=== PATIENT | female | born 1985 | race Caucasian/White ===

== ENCOUNTER → 2016-07-15 | Outpatient (CLI) | payer BC ==
[~2016-07-15] MED LIST: AMLO10TA2 PO; HYDR25TA4 PO; PREN1TAB86 PO
--- NOTE | 2016-07-15 17:25 | Diagnostic Imaging Report ---
OB ultrasound. INDICATION: Check growth and position. FINDINGS: The heart rate is 149 beats per minute. The placenta is posterior. No placenta previa. position is cephalic. Amniotic fluid index is 11.7 cm. growth parameters are all around 36 weeks and 3 days representing relatively small size of the fetus but is likely within normal limits with estimated weight of 2.9 kg. The head circumference is at the 5th percentile and femur length is at the 3rd percentile. On prior exam of 07/02/2016, the head circumference was at the 16th percentile and femur length was at the 3rd percentile. Current gestational age by first available ultrasound which is in the second trimester, associated with decreased accuracy, is 38 weeks and 2 days. IMPRESSION: Relatively small size of the fetus, near the lower limits of normal. Dictated by: Dictated on workstation # [id number]
== END ==
LOC: RAD 14:09
PROVIDERS: ATTEND Family Medicine
DX: Z36 Encounter for antenatal screening of mother (principal); Z3A.37 37 weeks gestation of pregnancy
CPT/HCPCS: 76816

== ENCOUNTER 2016-07-19 06:00 | Inpatient (IN) | payer BC, MEDICAID ==
[2016-07-19] VITALS (65 sets, daily range): BP systolic 114–204; BP diastolic 58–112
[~2016-07-19] VITALS: Ht 160 cm; Wt 144.7 kg
[2016-07-19] MEDS ORDERED: PREN1TAB86 PO (06:53)
[2016-07-19 07:18] LABS: BILIRUBIN,URINE NEGATIVE (NEGATIVE); KETONES,URINE NEGATIVE (NEGATIVE); LEUKOCYTE ESTERASE ,URINE NEGATIVE (NEGATIVE); NITRITE,URINE NEGATIVE (NEGATIVE); PH,URINE 7 (5-9); PROTEIN,URINE 3+ (NEGATIVE); UROBILINOGEN,URINE NORMAL (NORMAL)
[2016-07-19 07:27] LABS: WBC,URINE 0-2 /HPF
[2016-07-19 08:09] LABS: BASOPHILS % (AUTO) 0 % (0-10); EOSINOPHILS # (AUTO) 0.2 10^3/uL (0.0-0.3); EOSINOPHILS % (AUTO) 2 % (0-10); LYMPHOCYTES # (AUTO) 1.5 X 10^3 (1.0-4.0); LYMPHOCYTES % (AUTO) 17 % (12-44); MEAN CORPUSCULAR HEMOGLOBIN 35 PG (25-34); MEAN CORPUSCULAR HGB CONC 34 G/DL (32-36); MEAN CORPUSCULAR VOLUME 105 FL (80-99); MEAN PLATELET VOLUME 11.4 FL (7.4-10.4); MONOCYTES # (AUTO) 0.7 X 10^3 (0.0-1.0); MONOCYTES % (AUTO) 8 % (0-12); NEUTROPHILS # (AUTO) 6.4 X 10^3 (1.8-7.8); NEUTROPHILS % (AUTO) 73 % (42-75); PLATELET COUNT 145 10^3/uL (130-400); RED BLOOD COUNT 3.32 10^6/uL (4.35-5.85); RED CELL DISTRIBUTION WIDTH 15.7 % (10.0-14.5); WHITE BLOOD COUNT 8.8 10^3/uL (4.3-11.0)
[2016-07-19 08:09] LABS: PROTEIN/CREATININE RATIO 1.48
[2016-07-19 08:27] LABS: ALANINE AMINOTRANSFERASE 34 U/L (0-55); ALBUMIN 3.3 G/DL (3.2-4.5); ANION GAP 12 MMOL/L (5-14); ASPARTATE AMINO TRANSFERASE 32 U/L (5-34); BILIRUBIN,TOTAL 0.2 MG/DL (0.1-1.0); BLOOD UREA NITROGEN 13 MG/DL (7-18); BUN/CREATININE RATIO 14; CALCIUM 9.1 MG/DL (8.5-10.1); CARBON DIOXIDE 18 MMOL/L (21-32); CHLORIDE 106 MMOL/L (98-107); CREATININE SERUM 0.95 MG/DL (0.60-1.30); GFR ESTIMATED > 60; GLUCOSE 88 MG/DL (70-105); LACTATE DEHYDROGENASE 238 U/L (125-220); POTASSIUM 4.2 MMOL/L (3.6-5.0); SODIUM 136 MMOL/L (135-145); TOTAL PROTEIN 6.8 G/DL (6.4-8.2); URIC ACID 6.4 MG/DL (2.6-7.2)
[2016-07-19] MEDS ORDERED: DINOPROSTONE 10 MG (CERVIDIL) INSERT PV ONE (08:45)
[2016-07-19] MEDS ORDERED: LACTATED RINGERS 1,000 ML IV SCH (08:48)
[2016-07-19] MEDS ORDERED: MINERAL OIL CONCENTRATE 99.9% 15 ML UDC TOP PRN (09:00)
[2016-07-19] MEDS ORDERED: D5 LR IV SOLUTION 1,000 ML IV ONE (09:06)
[2016-07-19] MEDS ORDERED: CALCIUM GLUC. 10% 4.65 MEQ/10 ML VIAL IV PRN (09:15)
[2016-07-19] MEDS ORDERED: MAGNESIUM 4 GM/100 ML IVPB 100 ML IV SCH (09:15)
[2016-07-19] MEDS: D5 LR IV SOLUTION 1,000 ML IV SCH ×2 (09:15→21:48)
[2016-07-19] MEDS ORDERED: MAGNESIUM 4 GM/100 ML IVPB 100 ML IV NR (09:25)
--- NOTE | 2016-07-19 09:25 | History & Physical-OB ---
OB - Chief Complaint & HPI Date Date of Admission: Date of Admission: Jul 19, 2016 at 08:43 Chief Complaint/History OB-Reason for Admission/Chief: Induction of Labor Hx : 4 Hx Para: 2 Expected Date of Delivery: Jul 27, 2016 Gestational Age in Weeks: 38 Gestational Age in Days: 6 Indication for induction: other (pre-eclampsia) Allergies and Home Medications Allergies Coded Allergies: No Known Drug Allergies (Verified Allergy, Unknown, 02/15/08) Home Medications Vit W-Ca,Fe,FA(<1 mg) 1 Each Tablet 1 EACH PO NEEDED (Reported) OB - History Hx of Present Care: Yes (late entry into care in 3rd trimester; had IUD in w/ irreg periods and did not know she was preg) Ultrasounds: Normal mid trimester US Obstetrical Complications: Pre-eclampsia Medical Complications: None Information Maternal Gestational Diabetes: Yes Obstetrical History Hx : 4 Hx Para: 2 Hx Total # of Abortions (Spona: 1 Hx Complication: No Hx Induced Hypertens: No Hx Maternal Gestational Diabet: Yes Hx Hemorrhage: No Delivery History Hx Dystocia: No Hx Forceps Assisted Delivery: No Hx Vacuum Extraction Assisted: No Hx Placenta Abnormality: No Hx Distress: No Hx Large For Gestational Age I: No Hx Small for Gestational Age I: No Hx Section: No Hx Vaginal Delivery Post C-Sec: No Hx Blood Disorders: No Adverse Rxn to Tranfusion: No Patient Past Medical History Sleep apnea hx of Gestational DM Social History/Family History Recent Infectious Disease Expo: No Immunizations Tetanus Booster (TDap): Less than 5yrs (06/09/16) RPR/VDRL: Negative GBS Status: Negative HBsAG: Negative OB - Admission Exam Physical Exam Vitals: Vital Signs 07/19/16 07/19/16 06:15 06:50 Temp 96.6 Pulse 65 Resp 18 B/P 204/112 O2 Delivery Room Air Abdomen: Gravid Reflexes: Normal Cervical Dilatation: 1cm Effacement: 25% Station: Ballotable Membranes: Intact Accelerations: Accelerations Present Decelerations: No Decelerations Contractions on Admission: None Pond Scoring Tool (Modified) Pond Score: 6 Labs Laboratory Tests Test 07/19/16 06:10 07/19/16 08:03 Range/Units Urine Bacteria MODERATE H /HPF Urine Bilirubin NEGATIVE NEGATIVE Urine Casts NONE /LPF Urine Clarity SLIGHTLY CLOUDY Urine Color YELLOW Urine Creatinine 44 30-125 MG/DL Urine Crystals NONE /LPF Urine Culture Indicated YES Urine Glucose (UA) NEGATIVE NEGATIVE Urine Ketones NEGATIVE NEGATIVE Urine Leukocyte Esterase NEGATIVE NEGATIVE Urine Mucus NEGATIVE /LPF Urine Nitrite NEGATIVE NEGATIVE Urine Protein 65 H 6-12 MG/DL Urine Protein/Creatinine Ratio 1.48 Urine RBC 0-2 /HPF Urine RBC (Auto) 2+ H NEGATIVE Urine Specific [place] 1.010 L 1.016-1.022 Urine Squamous Epithelial Cells 5-10 /HPF Urine Urobilinogen NORMAL NORMAL MG/DL Urine WBC 0-2 /HPF Urine pH 7 5-9 Alanine Aminotransferase (ALT/SGPT) 34 0-55 U/L Albumin 3.3 3.2-4.5 G/DL Alkaline Phosphatase 117 40-136 U/L Anion Gap 12 5-14 MMOL/L Aspartate Amino Transf (AST/SGOT) 32 5-34 U/L BUN/Creatinine Ratio 14 Basophils # (Auto) 0.0 0.0-0.1 10^3/uL Basophils (%) (Auto) 0 0-10 % Blood Urea Nitrogen 13 7-18 MG/DL Calcium Level 9.1 8.5-10.1 MG/DL Carbon Dioxide Level 18 L 21-32 MMOL/L Chloride Level 106 98-107 MMOL/L Creatinine 0.95 0.60-1.30 MG/DL Eosinophils # (Auto) 0.2 0.0-0.3 10^3/uL Eosinophils (%) (Auto) 2 0-10 % Estimat Glomerular Filtration Rate > 60 Glucose Level 88 70-105 MG/DL Hematocrit 35 35-52 % Hemoglobin 11.7 11.5-16.0 G/DL Lactate Dehydrogenase 238 H 125-220 U/L Lymphocytes # (Auto) 1.5 1.0-4.0 X 10^3 Lymphocytes (%) (Auto) 17 12-44 % Mean Corpuscular Hemoglobin 35 H 25-34 PG Mean Corpuscular Hemoglobin Concent 34 32-36 G/DL Mean Corpuscular Volume 105 H 80-99 FL Mean Platelet Volume 11.4 H 7.4-10.4 FL Monocytes # (Auto) 0.7 0.0-1.0 X 10^3 Monocytes (%) (Auto) 8 0-12 % Neutrophils # (Auto) 6.4 1.8-7.8 X 10^3 Neutrophils (%) (Auto) 73 42-75 % Platelet Count 145 130-400 10^3/uL Potassium Level 4.2 3.6-5.0 MMOL/L Red Blood Count 3.32 L 4.35-5.85 10^6/uL Red Cell Distribution Width 15.7 H 10.0-14.5 % Sodium Level 136 135-145 MMOL/L Total Bilirubin 0.2 0.1-1.0 MG/DL Total Protein 6.8 6.4-8.2 G/DL Uric Acid 6.4 2.6-7.2 MG/DL White Blood Count 8.8 4.3-11.0 10^3/uL OB - Assessment/Plan/Diagnosis Assessment Assessment: induction of labor (for pre-eclampsia) Plan Plan: Induction Induction Method: other (cervidil, pitocin) Other Plan Start Mag Sulfate for seizure prophylaxis Treat BP to <160/105 w/ Labetalol and/or hydralazine JUANJOSE FRANCISCO DO Jul 19, 2016 09:25
[2016-07-19] MEDS: LABETALOL HCL 20 MG/4 ML VIAL IV PRN (09:38)
[2016-07-19] MEDS ORDERED: hydrALAZINE (APESOLINE) 20 MG/ML VIAL IV SCH (10:00)
[2016-07-19] MEDS: MAGNESIUM SULFATE DRIP 500 ML IV SCH ×2 (10:26→20:16)
[2016-07-19] MEDS ORDERED: FLU TRIvalent (5 YOA+) 2016-17 (AFLURIA) 0.5 ML IM ONE (13:00)
[2016-07-19] MEDS: ACETAMINOPHEN 500 MG TAB (TYLENOL) PO PRN (17:21)
[2016-07-19] MEDS ORDERED: OXYTOCIN/NORMAL SALINE 500 ML IV SCH (18:16)
[2016-07-19] MEDS ORDERED: SUFENTA 1 MCG/ML BUPIVA 0.1% 100 ML ONE (21:27)
[2016-07-19] MEDS: CATHETER FLUSH 10 ML SYR IV SCH (22:00)
[2016-07-19] MEDS ORDERED: BUPIVACAINE 0.25% 30 ML (SENSORCAINE) VIAL ONE (22:04)
[2016-07-19] MEDS ORDERED: ONDANSETRON 4 MG/2 ML (SDV) Z0FRAN IV PRN (22:45)
[2016-07-19] MEDS ORDERED: NALOXONE 0.4 MG/ML 1 ML (NARCAN) VIAL IV PRN (22:45)
[2016-07-19] MEDS ORDERED: EPIDURAL (SUFENTANIL 1 MCG/ML BUPIVACAINE 0.1%) 100 ML EPI SCH (22:45)
[2016-07-20] VITALS (47 sets, daily range): BP systolic 93–193; BP diastolic 49–109
[2016-07-20] MEDS: CATHETER FLUSH 10 ML SYR IV SCH ×3 (06:00→22:22)
--- NOTE | 2016-07-20 06:06 | OB Labor & Delivery Record ---
Vag Delivery Note Vag Delivery Note Date of Delivery: 07/20/16 Preoperative Diagnosis: Gisselle Guthrie is a (31 /Para 4 / 2,Gestational Age (wks)38.6 wga with pre eclampsia and morbid obesity. Postoperative Diagnosis: Same Delivery Physician: NIKI PRADO Station Cashier: None Anesthesia: Epidural Delivery Type: Findings: Viable Male infant, apgars 7/9, weight 2655 grams Lacerations: none Intact placenta with 3 vessel cord. nuchal cord x 2, No body cord or shoulder dystocia Pitocin started after delivery of anterior shoulder Estimated Blood Loss: 150 ml Complications: Preelcampsia Condition: Stable Description of Procedure: The patient is a 31 yo who presented with elevated blood pressures and proteinuria. She was admitted and informed consent was obtained. Her labor course was remarkable for Preeclampsia. Patient on Magnesium since admission. Cervidil was placed this AM and remained in placed for 8 hrs. Pitocin was started 1 hr after Cervidil was removed. Patient then progressed to completion. She was then set up for delivery. The 's head was delivered atraumatically in the PRISCA position. The shoulders and remainder of the 's body were then delivered without difficulty. Upon delivery, the head was held below the level of the perineum and the mouth and nares were bulb suctioned. The cord was doubly clamped and cut and the was handed off to the pediatric staff. An intact placenta with 3-vessel cord delivered spontaneously and there was found to be minimal bleeding.~ Vigorous fundal massage was performed and the fundus was found to be firm. IV oxytocin was given. Examination of the vagina and perineum revealed no lacerations that required repaire. Sponge, instrument and needle counts were correct. Mom and baby were both in stable condition in the labor suite. Vitals - Labs Vital Signs - I&O Vital Signs Date Time Temp Pulse Resp B/P Pulse Ox O2 Delivery O2 Flow Rate FiO2 07/20/16 05:00 96.8 71 16 152/89 Room Air 07/20/16 04:45 57 16 170/92 Non Rebreather 10.00 07/20/16 04:30 59 16 186/99 Non Rebreather 10.00 07/20/16 04:15 57 16 165/98 Non Rebreather 10.00 07/20/16 04:00 58 16 167/108 Non Rebreather 10.00 07/20/16 03:45 56 16 161/102 Non Rebreather 10.00 07/20/16 03:30 61 16 156/82 Room Air 07/20/16 03:15 97.5 57 14 193/95 Room Air 07/20/16 03:00 56 14 184/95 Room Air 07/20/16 02:45 96.9 59 14 168/97 Room Air 07/20/16 02:30 57 14 138/85 Room Air 07/20/16 02:15 60 14 142/84 Room Air 07/20/16 02:00 65 14 144/92 Room Air 07/20/16 01:45 66 14 161/91 Room Air 07/20/16 01:30 68 14 167/96 97 Room Air 07/20/16 01:15 61 14 152/85 99 Room Air 07/20/16 01:00 57 14 143/84 99 Non Rebreather 10.00 07/20/16 00:45 57 14 137/81 99 Non Rebreather 10.00 07/20/16 00:30 96.3 62 14 158/80 98 Non Rebreather 10.00 07/20/16 00:15 62 14 146/73 99 Non Rebreather 10.00 07/20/16 00:00 68 14 141/68 93 Non Rebreather 10.00 07/19/16 23:45 67 14 149/75 95 Room Air 07/19/16 23:30 63 14 149/79 100 Non Rebreather 10.00 07/19/16 23:10 61 14 145/80 100 Non Rebreather 10.00 07/19/16 23:05 66 14 144/84 100 Non Rebreather 10.00 07/19/16 23:00 60 14 155/83 100 Non Rebreather 10.00 07/19/16 22:55 64 14 139/81 100 Non Rebreather 10.00 07/19/16 22:50 96.8 66 14 143/87 95 Room Air 07/19/16 22:42 67 14 146/82 92 Room Air 07/19/16 22:37 66 16 148/83 97 Room Air 07/19/16 22:34 66 16 148/80 97 Room Air 07/19/16 22:31 65 16 149/79 97 Room Air 07/19/16 22:28 70 16 165/87 97 Room Air 07/19/16 22:27 70 16 153/83 95 Room Air 07/19/16 22:23 66 16 159/86 99 Room Air 07/19/16 22:22 68 16 178/96 100 Room Air 07/19/16 22:19 62 16 180/92 98 Room Air 07/19/16 22:10 69 16 168/105 100 Room Air 07/19/16 22:00 68 18 188/97 98 Room Air 07/19/16 21:45 66 18 156/88 Room Air 07/19/16 21:30 62 18 146/82 Room Air 07/19/16 21:15 63 18 189/102 Room Air 07/19/16 21:00 96.6 65 18 153/82 Room Air 07/19/16 20:45 66 18 142/93 Room Air 07/19/16 20:30 70 18 138/93 Room Air 07/19/16 20:15 68 18 170/98 Room Air 07/19/16 20:00 68 18 152/96 Room Air 07/19/16 19:45 68 18 140/79 Room Air 07/19/16 19:30 96.6 65 18 133/74 Room Air 07/19/16 19:15 68 18 133/64 Room Air 07/19/16 19:00 66 18 145/65 Room Air 07/19/16 18:45 70 18 137/80 Room Air 07/19/16 18:30 63 18 135/61 Room Air 07/19/16 18:15 65 18 137/67 Room Air 07/19/16 18:00 78 18 154/74 Room Air 07/19/16 17:45 68 18 154/74 Room Air 07/19/16 17:30 70 18 143/66 Room Air 07/19/16 17:15 67 18 132/64 Room Air 07/19/16 17:00 67 18 143/70 Room Air 07/19/16 16:45 70 18 144/65 Room Air 07/19/16 16:30 69 18 139/64 Room Air 07/19/16 16:15 68 18 144/69 Room Air 07/19/16 16:00 68 18 147/69 Room Air 07/19/16 15:45 67 18 147/67 Room Air 07/19/16 15:30 68 18 151/63 Room Air 07/19/16 15:15 64 18 139/71 Room Air 07/19/16 15:00 68 18 148/75 Room Air 07/19/16 14:45 64 18 152/74 Room Air 07/19/16 14:35 67 18 157/71 Room Air 07/19/16 14:30 65 18 163/82 Room Air 07/19/16 14:15 62 18 145/80 Room Air 07/19/16 14:02 67 18 166/86 Room Air 07/19/16 14:00 97.1 67 18 179/90 Room Air 07/19/16 13:30 18 Room Air 07/19/16 13:00 61 18 130/60 Room Air 07/19/16 12:30 18 Room Air 07/19/16 12:00 18 Room Air 07/19/16 11:50 18 127/60 Room Air 07/19/16 11:30 Room Air 07/19/16 11:18 97.7 61 18 141/65 Room Air 07/19/16 11:00 56 18 114/59 Room Air 07/19/16 10:48 58 18 117/71 Room Air 07/19/16 10:30 64 18 123/58 96 Room Air 07/19/16 10:18 63 18 130/66 96 Room Air 07/19/16 10:00 60 18 146/68 95 Room Air 07/19/16 09:45 64 18 189/94 94 Room Air 07/19/16 08:30 197/100 07/19/16 07:15 97.4 56 18 202/98 Room Air 07/19/16 06:50 65 18 204/112 Room Air 07/19/16 06:15 96.6 63 18 175/86 Room Air I & O 07/20/16 07:00 Intake Total 1600 ml Output Total 2675 ml Balance -1075 ml Labs Laboratory Tests 07/19/16 06:10: Urine Bacteria MODERATEH, Urine Bilirubin NEGATIVE, Urine Casts NONE, Urine Clarity SLIGHTLY CLOUDY, Urine Color YELLOW, Urine Creatinine 44, Urine Crystals NONE, Urine Culture Indicated YES, Urine Glucose (UA) NEGATIVE, Urine Ketones NEGATIVE, Urine Leukocyte Esterase NEGATIVE, Urine Mucus NEGATIVE, Urine Nitrite NEGATIVE, Urine Protein 65H, Urine Protein/Creatinine Ratio 1.48, Urine RBC 0-2, Urine RBC (Auto) 2+H, Urine Specific [place] 1.010L, Urine Squamous Epithelial Cells 5-10, Urine Urobilinogen NORMAL, Urine WBC 0-2, Urine pH 7 07/19/16 08:03: Alanine Aminotransferase (ALT/SGPT) 34, Albumin 3.3, Alkaline Phosphatase 117, Anion Gap 12, Aspartate Amino Transf (AST/SGOT) 32, BUN/Creatinine Ratio 14, Basophils # (Auto) 0.0, Basophils (%) (Auto) 0, Blood Urea Nitrogen 13, Calcium Level 9.1, Carbon Dioxide Level 18L, Chloride Level 106, Creatinine 0.95, Eosinophils # (Auto) 0.2, Eosinophils (%) (Auto) 2, Estimat Glomerular Filtration Rate > 60, Glucose Level 88, Hematocrit 35, Hemoglobin 11.7, Lactate Dehydrogenase 238H, Lymphocytes # (Auto) 1.5, Lymphocytes (%) (Auto) 17, Mean Corpuscular Hemoglobin 35H, Mean Corpuscular Hemoglobin Concent 34, Mean Corpuscular Volume 105H, Mean Platelet Volume 11.4H, Monocytes # (Auto) 0.7, Monocytes (%) (Auto) 8, Neutrophils # (Auto) 6.4, Neutrophils (%) (Auto) 73, Platelet Count 145, Potassium Level 4.2, Red Blood Count 3.32L, Red Cell Distribution Width 15.7H, Sodium Level 136, Total Bilirubin 0.2, Total Protein 6.8, Uric Acid 6.4, White Blood Count 8.8 07/19/16 08:09: Magnesium Level 1.9 07/19/16 14:00: Glucometer 93 07/19/16 20:23: Glucometer 110 NIKI PRADO MD Jul 20, 2016 06:06
[2016-07-20] MEDS ORDERED: WITCH HAZEL(TUCKS) 40 EA JAR TOP PRN (06:15)
[2016-07-20] MEDS ORDERED: MEASLES,MUMPS,RUBELLA 1 EA INJ SQ ONE (06:15)
[2016-07-20] MEDS: MAGNESIUM SULFATE DRIP 500 ML IV SCH ×2 (06:15→16:05)
[2016-07-20] MEDS ORDERED: TETANUS,DIPTH,PERTUSS P/F (BOOSTRIX) 0.5 ML VIAL IM ONE (06:15)
[2016-07-20] MEDS ORDERED: BENZOCAINE/MENTHOL (DERMOPLAST) 56 ML CAN TP PRN (06:15)
[2016-07-20] MEDS: LABETALOL HCL 20 MG/4 ML VIAL IV PRN (07:57)
[2016-07-20] MEDS: IBUPROFEN 600 MG (MOTRIN) TAB PO SCH ×3 (07:58→20:06)
[2016-07-20] MEDS ORDERED: OXYTOCIN/NORMAL SALINE 500 ML IV NR (10:00)
--- NOTE | 2016-07-20 11:53 | Anesthesia-Regional Post-Op ---
Regional Patient Condition Mental Status: Alert, Oriented x3 Circulation: Same as Pre-Op Headache: Absent Sensation: Full Recovery Motor Block: Absent Post Op Complications Complications None Follow Up Care/Instructions Patient Instructions None needed. Anesthesia/Patient Condition Patient is doing well, no complaints, stable vital signs, no apparent adverse anesthesia problems. No complications reported per nursing. OSIEL WILSON CRNA Jul 20, 2016 11:53
[2016-07-20] MEDS ORDERED: CATHETER FLUSH 10 ML SYR IV SCH (14:00)
[2016-07-20] MEDS: D5 LR IV SOLUTION 1,000 ML IV SCH ×2 (16:04→22:22)
[2016-07-21] VITALS (13 sets, daily range): BP systolic 103–150; BP diastolic 60–91
[2016-07-21] MEDS: MAGNESIUM SULFATE DRIP 500 ML IV SCH (02:13)
[2016-07-21 05:16] LABS: BASOPHILS % (AUTO) 0 % (0-10); EOSINOPHILS # (AUTO) 0.1 10^3/uL (0.0-0.3); EOSINOPHILS % (AUTO) 1 % (0-10); LYMPHOCYTES # (AUTO) 1.3 X 10^3 (1.0-4.0); LYMPHOCYTES % (AUTO) 16 % (12-44); MEAN CORPUSCULAR HEMOGLOBIN 35 PG (25-34); MEAN CORPUSCULAR HGB CONC 33 G/DL (32-36); MEAN CORPUSCULAR VOLUME 105 FL (80-99); MEAN PLATELET VOLUME 10.7 FL (7.4-10.4); MONOCYTES # (AUTO) 0.4 X 10^3 (0.0-1.0); MONOCYTES % (AUTO) 5 % (0-12); NEUTROPHILS # (AUTO) 6.2 X 10^3 (1.8-7.8); NEUTROPHILS % (AUTO) 78 % (42-75); PLATELET COUNT 142 10^3/uL (130-400); RED BLOOD COUNT 2.86 10^6/uL (4.35-5.85)
[2016-07-21] MEDS: IBUPROFEN 600 MG (MOTRIN) TAB PO SCH ×4 (06:15→17:49)
--- NOTE | 2016-07-21 08:53 | Progress Note (SOAP) ---
Subjective Subjective/Events-last exam On mag for 24h; good UOP. BP improved, received 1 dose of Labetalol since delivery. Objective Exam Last Set of Vital Signs Vital Signs Date Time Temp Pulse Resp B/P Pulse Ox O2 Delivery O2 Flow Rate FiO2 07/21/16 07:00 97.6 69 18 125/82 Room Air 07/21/16 04:00 93 07/20/16 04:45 10.00 Capillary Refill : I&O Intake and Output 07/21/16 00:00 Intake Total 5250 ml Output Total 2745 ml Balance 2505 ml Intake Oral 2800 ml IV Total 2450 ml Output Urine Total 2595 ml Emesis 150 ml General: Alert, Cooperative, Other (grogy) Psych/Mental Status: Mood NL Results/Procedures Lab Laboratory Tests 07/21/16 05:00: Basophils # (Auto) 0.0, Basophils (%) (Auto) 0, Eosinophils # (Auto) 0.1, Eosinophils (%) (Auto) 1, Hematocrit 30L, Hemoglobin 9.9L, Lymphocytes # (Auto) 1.3, Lymphocytes (%) (Auto) 16, Mean Corpuscular Hemoglobin 35H, Mean Corpuscular Hemoglobin Concent 33, Mean Corpuscular Volume 105H, Mean Platelet Volume 10.7H, Monocytes # (Auto) 0.4, Monocytes (%) (Auto) 5, Neutrophils # ( Auto) 6.2, Neutrophils (%) (Auto) 78H, Platelet Count 142, Red Blood Count 2.86L , Red Cell Distribution Width 16.0H, White Blood Count 8.0 Microbiology 07/19/16 Urine Culture - Preliminary, Resulted Assessment/Plan Assessment/Plan Plan 1. PPD #1 s/p - IOL at 39wk for pre-eclampsia - Received mag sulfate x 24h w/ good UOP - DC, DC IVF and douglas - monitor BP, tx w/ po meds if necessary - encourage ambulation Diagnosis/Problems: Clinical Quality Measures DVT/VTE Risk/Contraindication: Risk Factor Score Per Nursin RFS Level Per Nursing on Admit: 3=High JUANJOSE FRANCISCO DO Jul 21, 2016 08:53
[2016-07-21] MEDS ORDERED: TETANUS,DIPTH,PERTUSS P/F (BOOSTRIX) 0.5 ML VIAL IM ONE (10:26)
[2016-07-22] VITALS (7 sets, daily range): BP systolic 130–167; BP diastolic 79–96
[2016-07-22 06:39] LABS: MEAN PLATELET VOLUME 11.1 FL (7.4-10.4); RED BLOOD COUNT 2.71 10^6/uL (4.35-5.85); RED CELL DISTRIBUTION WIDTH 16.3 % (10.0-14.5); WHITE BLOOD COUNT 6.9 10^3/uL (4.3-11.0)
[2016-07-22] MEDS: IBUPROFEN 600 MG (MOTRIN) TAB PO SCH ×5 (06:55→20:45)
[2016-07-22 07:03] LABS: ALANINE AMINOTRANSFERASE 26 U/L (0-55); ALBUMIN 2.9 G/DL (3.2-4.5); ANION GAP 8 MMOL/L (5-14); ASPARTATE AMINO TRANSFERASE 29 U/L (5-34); BILIRUBIN,TOTAL 0.2 MG/DL (0.1-1.0); BLOOD UREA NITROGEN 11 MG/DL (7-18); BUN/CREATININE RATIO 12; CALCIUM 7.1 MG/DL (8.5-10.1); CARBON DIOXIDE 21 MMOL/L (21-32); CHLORIDE 109 MMOL/L (98-107); CREATININE SERUM 0.93 MG/DL (0.60-1.30); GFR ESTIMATED > 60; GLUCOSE 117 MG/DL (70-105); SODIUM 138 MMOL/L (135-145)
--- NOTE | 2016-07-22 09:41 | Progress Note (SOAP) ---
Subjective Subjective/Events-last exam Pt feeling much better. Good UOP. Objective Exam Last Set of Vital Signs Vital Signs Date Time Temp Pulse Resp B/P Pulse Ox O2 Delivery O2 Flow Rate FiO2 07/22/16 08:45 97.6 62 18 167/79 96 07/22/16 04:30 NIV/CPAP 07/20/16 04:45 10.00 Capillary Refill : I&O Intake and Output 07/22/16 00:00 Intake Total 3745 ml Output Total 4375 ml Balance -630 ml Intake Oral 2900 ml IV Total 845 ml Output Urine Total 4375 ml General: Alert, Oriented X3, Cooperative Psych/Mental Status: Mood NL Results/Procedures Lab Laboratory Tests 07/22/16 05:43: Alanine Aminotransferase (ALT/SGPT) 26, Albumin 2.9L, Alkaline Phosphatase 104, Anion Gap 8, Aspartate Amino Transf (AST/SGOT) 29, BUN/Creatinine Ratio 12, Blood Urea Nitrogen 11, Calcium Level 7.1L, Carbon Dioxide Level 21, Chloride Level 109H, Creatinine 0.93, Estimat Glomerular Filtration Rate > 60, Glucose Level 117H, Hematocrit 29L, Hemoglobin 9.4L, Mean Corpuscular Hemoglobin 35H, Mean Corpuscular Hemoglobin Concent 32, Mean Corpuscular Volume 107H, Mean Platelet Volume 11.1H, Platelet Count 158, Potassium Level 4.0, Red Blood Count 2.71L, Red Cell Distribution Width 16.3H, Sodium Level 138, Total Bilirubin 0.2 , Total Protein 6.0L, White Blood Count 6.9 Microbiology 07/19/16 Urine Culture - Final, Complete Assessment/Plan Assessment/Plan Plan 1. PPD #2 s/p - IOL at 39wk for pre-eclampsia 07/21 - Received mag sulfate x 24h w/ good UOP - DC, DC IVF and douglas - monitor BP, tx w/ po meds if necessary - encourage ambulation 07/22 - BP generally 130 systolic, had 1 recorded of 160's systolic - continue to monitor - anticipate DC to room in tomorrow as baby will require antibiotics for 7 days for pneumonia Diagnosis/Problems: Clinical Quality Measures DVT/VTE Risk/Contraindication: Risk Factor Score Per Nursin RFS Level Per Nursing on Admit: 3=High JUANJOSE FRANCISCO DO Jul 22, 2016 09:41
[2016-07-22] MEDS: CATHETER FLUSH 10 ML SYR IV SCH (13:08)
[2016-07-22] MEDS ORDERED: amLODIPine 5 MG (NORVASC) TAB PO ONE (21:15)
[2016-07-23 04:05] VITALS: BP 145/91
[2016-07-23] MEDS: IBUPROFEN 600 MG (MOTRIN) TAB PO SCH (06:53)
[2016-07-23] MEDS ORDERED: amLODIPine 5 MG (NORVASC) TAB PO SCH (09:00)
[2016-07-23] MEDS ORDERED: AMLO10TA2 PO (09:13)
[2016-07-23 12:32] LABS: BASOPHILS % (AUTO) 0 % (0-10); EOSINOPHILS # (AUTO) 0.2 10^3/uL (0.0-0.3); EOSINOPHILS % (AUTO) 3 % (0-10); LYMPHOCYTES # (AUTO) 1.6 X 10^3 (1.0-4.0); LYMPHOCYTES % (AUTO) 20 % (12-44); MEAN CORPUSCULAR HEMOGLOBIN 35 PG (25-34); MEAN CORPUSCULAR HGB CONC 32 G/DL (32-36); MEAN CORPUSCULAR VOLUME 108 FL (80-99); MEAN PLATELET VOLUME 10.5 FL (7.4-10.4); MONOCYTES # (AUTO) 0.5 X 10^3 (0.0-1.0); MONOCYTES % (AUTO) 6 % (0-12); NEUTROPHILS # (AUTO) 5.4 X 10^3 (1.8-7.8); NEUTROPHILS % (AUTO) 70 % (42-75); PLATELET COUNT 177 10^3/uL (130-400); RED BLOOD COUNT 3.01 10^6/uL (4.35-5.85); RED CELL DISTRIBUTION WIDTH 15.9 % (10.0-14.5); WHITE BLOOD COUNT 7.7 10^3/uL (4.3-11.0)
[2016-07-23 12:49] LABS: BAND NEUTROPHILS 0 %; LYMPHOCYTES % (MANUAL) 26 %; NEUTROPHILS % (MANUAL) 62 %
[2016-07-23 12:50] LABS: BASOPHILS % (MANUAL) 1 %; EOSINOPHILS % (MANUAL) 1 %
[2016-07-23 13:00] VITALS: BP 174/100
[2016-07-23 13:04] LABS: ALANINE AMINOTRANSFERASE 30 U/L (0-55); ALBUMIN 3.2 G/DL (3.2-4.5); ANION GAP 10 MMOL/L (5-14); ASPARTATE AMINO TRANSFERASE 34 U/L (5-34); BILIRUBIN,TOTAL 0.4 MG/DL (0.1-1.0); BLOOD UREA NITROGEN 8 MG/DL (7-18); BUN/CREATININE RATIO 9; CALCIUM 8.5 MG/DL (8.5-10.1); CARBON DIOXIDE 22 MMOL/L (21-32); CHLORIDE 107 MMOL/L (98-107); CREATININE SERUM 0.94 MG/DL (0.60-1.30); GFR ESTIMATED > 60; GLUCOSE 109 MG/DL (70-105); LACTATE DEHYDROGENASE 294 U/L (125-220); POTASSIUM 4.1 MMOL/L (3.6-5.0); SODIUM 139 MMOL/L (135-145); TOTAL PROTEIN 6.6 G/DL (6.4-8.2)
[2016-07-23 15:04] VITALS: BP 159/109
[2016-07-23] MEDS ORDERED: NIFEdipine ER 30 MG (PROCARDIA XL) TAB PO NR (15:30)
[2016-07-23 17:30] VITALS: BP 174/104
[2016-07-23] MEDS: HYDROCHLOROTHIAZIDE 25 MG (HCTZ) TAB PO SCH (18:00)
[2016-07-23 19:48] VITALS: BP 156/93
--- NOTE | 2016-07-23 20:03 | Progress Note (SOAP) ---
Subjective Subjective/Events-last exam Denies headache, abdominal pain, swelling, shortness of breath. Bleeding is minimal and she denies dizziness. Date seen by provider: Jul 23, 2016 Time seen by provider: 09:00 Objective Exam Last Set of Vital Signs Vital Signs Date Time Temp Pulse Resp B/P Pulse Ox O2 Delivery O2 Flow Rate FiO2 07/23/16 19:48 97.6 66 18 156/93 96 Room Air 07/20/16 04:45 10.00 Capillary Refill : General: Alert, No Acute Distress Lungs: Clear to Auscultation, Normal Air Movement Heart: Regular Rate, No Murmurs Abdomen: Normal Bowel Sounds, Other (fundus firm below umbilicus) Neuro: Normal Gait, Normal Speech Psych/Mental Status: Mental Status NL Results/Procedures Lab Laboratory Tests 07/23/16 12:25: Alanine Aminotransferase (ALT/SGPT) 30, Albumin 3.2, Alkaline Phosphatase 91, Anion Gap 10, Aspartate Amino Transf (AST/SGOT) 34, BUN/Creatinine Ratio 9, Band Neutrophils 0, Basophils # (Auto) 0.0, Basophils % (Manual) 1, Basophils (% ) (Auto) 0, Blood Morphology Comment NORMAL, Blood Urea Nitrogen 8, Calcium Level 8.5, Carbon Dioxide Level 22, Chloride Level 107, Creatinine 0.94, Eosinophils # (Auto) 0.2, Eosinophils % (Manual) 1, Eosinophils (%) (Auto) 3, Estimat Glomerular Filtration Rate > 60, Glucose Level 109H, Hematocrit 32L, Hemoglobin 10.4L, Lactate Dehydrogenase 294H, Lymphocytes # (Auto) 1.6, Lymphocytes % (Manual) 26, Lymphocytes (%) (Auto) 20, Mean Corpuscular Hemoglobin 35H, Mean Corpuscular Hemoglobin Concent 32, Mean Corpuscular Volume 108H, Mean Platelet Volume 10.5H, Monocytes # (Auto) 0.5, Monocytes % (Manual) 10, Monocytes (%) (Auto) 6, Neutrophils # (Auto) 5.4, Neutrophils % (Manual) 62 , Neutrophils (%) (Auto) 70, Nucleated Red Blood Cells 1, Platelet Count 177, Potassium Level 4.1, Red Blood Count 3.01L, Red Cell Distribution Width 15.9H, Sodium Level 139, Total Bilirubin 0.4, Total Protein 6.6, Uric Acid 6.0, White Blood Count 7.7 Microbiology 07/19/16 Urine Culture - Final, Complete Assessment/Plan Assessment/Plan Plan 1. PPD #2 s/p - IOL at 39wk for pre-eclampsia 07/21 - Received mag sulfate x 24h w/ good UOP - DC, DC IVF and douglas - monitor BP, tx w/ po meds if necessary - encourage ambulation 07/22 - BP generally 130 systolic, had 1 recorded of 160's systolic - continue to monitor - anticipate DC to room in tomorrow as baby will require antibiotics for 7 days for pneumonia 07/23 - required amlodipine last night and BP remains elevated, given a dose of nifedipine without improvement, rechecked preeclampsia labs which show only elevated LDH. Will give hydralazine now and add hydrochlorothiazide to daily regimen and monitor closely. Consider IV or IM therapy if BP persistently above 160/110. Diagnosis/Problems: Clinical Quality Measures DVT/VTE Risk/Contraindication: Risk Factor Score Per Nursin RFS Level Per Nursing on Admit: 3=High NACHO OLIVIA MD Jul 23, 2016 8:03 pm
[2016-07-24] VITALS (9 sets, daily range): BP systolic 135–181; BP diastolic 81–107
[2016-07-24] MEDS ORDERED: amLODIPine 5 MG (NORVASC) TAB PO SCH (09:00)
[2016-07-24] MEDS ORDERED: HYDR25TA4 PO (09:29)
[2016-07-24] MEDS: HYDROCHLOROTHIAZIDE 25 MG (HCTZ) TAB PO SCH (09:55)
[2016-07-24] MEDS: ACETAMINOPHEN 500 MG TAB (TYLENOL) PO PRN ×2 (09:58→15:30)
--- NOTE | 2016-08-06 14:41 | Discharge Summary ---
Diagnosis/Chief Complaint Date of Admission Jul 19, 2016 at 08:43 Date of Discharge Jul 24, 2016 at 20:20 Admission Diagnosis Admission Diagnosis 39 weeks gestation Preeclampsia Discharge Diagnosis 1. s/p - IOL at 39wk for pre-eclampsia 07/21 - Received mag sulfate x 24h w/ good UOP - DC, DC IVF and douglas - monitor BP, tx w/ po meds if necessary - encourage ambulation 07/22 - BP generally 130 systolic, had 1 recorded of 160's systolic - continue to monitor - anticipate DC to room in tomorrow as baby will require antibiotics for 7 days for pneumonia 07/23 - required amlodipine last night and BP remains elevated, given a dose of nifedipine without improvement, rechecked preeclampsia labs which show only elevated LDH. Will give hydralazine now and add hydrochlorothiazide to daily regimen and monitor closely. Consider IV or IM therapy if BP persistently above 160/110. 07/24 - blood pressure in 130s at d/c with amlodipine and hydrochlorothiazide, d/ c with follow up in a week for blood pressure Chief Complaint/HPI Chief Complaint/HPI G4 now P3 admitted for IOL at 38w6d due to preeclampsia. Discharge Summary-Simple/Stand Procedures Spontaneous vaginal delivery Discharge Physical Examination Allergies: Coded Allergies: No Known Drug Allergies (Verified Allergy, Unknown, 02/15/08) General Appearance: Alert, No Acute Distress Respiratory: Clear to Auscultation, Normal Air Movement Abdominal: Normal Bowel Sounds, Other (fundus firm below umbilicus) Extremities: No Edema Psych/Mental Status: Mental Status NL Hospital Course See final discharge diagnosis. Discharge Instructions to patient/family Please see electonic discharge instructions given to patient. Discharge Medications Reviewed and agree with Discharge Medication list on patient's Discharge Instruction sheet Clinical Quality Measures DVT/VTE Risk/Contraindication: Risk Factor Score Per Nursin RFS Level Per Nursing on Admit: 3=High Copy Copies To 1: JUANJOSE FRANCISCO BETHANY N MD Aug 06, 2016 14:41
== END 2016-07-24 20:20 | disposition home or self-care (01) | DRG 775 ==
LOC: WSo 06:00 → LDRP 06:03 → WSo 08:43 → LDRP 08:43
PROVIDERS: ADMIT Family Medicine; ATTEND Family Medicine
PROC: 3E0P7GC Introduction of Other Therapeutic Substance into Female Reproductive, Via Natural or Artificial Opening (ICD-10-PCS; 2016-07-19)
PROC: 10E0XZZ Delivery of Products of Conception, External Approach (ICD-10-PCS; principal; 2016-07-20)
DX: O14.94 Unspecified pre-eclampsia, complicating childbirth (principal); O24.429 Gestational diabetes mellitus in childbirth, unspecified control; Z3A.38 38 weeks gestation of pregnancy; Z37.0 Single live birth; O69.81X0 Labor and delivery complicated by cord around neck, without compression, not applicable or unspecified; E66.01 Morbid (severe) obesity due to excess calories; Z68.43 Body mass index [BMI] 50.0-59.9, adult; O99.214 Obesity complicating childbirth; Z23 Encounter for immunization
CPT/HCPCS: 36415; 80053; 81000; 82570; 82962; 83615; 83735; 84156; 84550; 85007; 85025; 85027; 86850; 86900; 86901; 87088; 90715; 94664; 99212

== ENCOUNTER → 2019-03-23 | Outpatient (CLI) | payer BC, MEDICAID ==
[~2019-03-23] MED LIST changes: -AMLO10TA2 PO; +AMLO10TA7 PO
--- NOTE | 2019-03-23 09:57 | Diagnostic Imaging Report ---
INDICATION: Acute versus chronic renal failure. TECHNIQUE: Multiple real-time grayscale sonographic images, color and duplex Doppler images were obtained of the urinary system. FINDINGS: Aortic velocity: 119 cm/sec. RIGHT kidney: Size: 10.6 x 5.2 x 4.8 cm The right renal parenchyma and collecting system appear unremarkable. The right renal artery is visualized in its proximal, mid and distal aspect. Maximum renal artery velocity: 105cm/sec Maximum renal artery/aortic ratio: 0.8 LEFT kidney: Size: 11.2 x 4.3 x 4.7 cm The left renal parenchyma and collecting system appear unremarkable. The left renal artery is visualized in its proximal, mid and distal aspect. Maximum renal artery velocity: 107cm/sec Maximum renal artery/aortic ratio: 0.9 Bladder: The urinary bladder is unremarkable. Bilateral ureteral jets are visualized. IMPRESSION: 1. Unremarkable renal ultrasound with doppler. (RA/AO ratios > 3.0 may suggest potential hemodynamically significant stenosis.) Dictated by: Dictated on workstation # [id number]
== END ==
LOC: RAD 08:29
PROVIDERS: ATTEND Family Medicine
DX: I10 Essential (primary) hypertension (principal)
CPT/HCPCS: 76770; 93975

== ENCOUNTER 2019-03-28 07:54 | Outpatient (CLI) | payer BC, MEDICAID | END 2019-03-28 17:35 | disposition home or self-care (01) | LOC: SLEEP 07:54 | PROVIDERS: ATTEND Family Medicine | DX: Z01.419 Encounter for gynecological examination (general) (routine) without abnormal findings (principal); G47.33 Obstructive sleep apnea (adult) (pediatric); G47.10 Hypersomnia, unspecified; I10 Essential (primary) hypertension; K43.9 Ventral hernia without obstruction or gangrene; F17.200 Nicotine dependence, unspecified, uncomplicated | CPT/HCPCS: 95811 ==

== ENCOUNTER 2021-10-26 21:59 | Observation (INO) | payer BC ==
[~2021-10-26] VITALS: Ht 160 cm; Wt 138.3 kg
[~2021-10-26 21:59] MED LIST changes: +AMLO-251 PO; -AMLO10TA7 PO
--- NOTE | 2021-10-26 22:09 | ED GU-Female ---
General Stated Complaint: MISCARRIAGE Source: patient, EMS Exam Limitations: no limitations History of Present Illness Date Seen by Provider: Oct 26, 2021 Time Seen by Provider: 21:58 Initial Comments Patient is a 36-year-old female who states that she is a G5, presents with miscarriage this evening by ambulance. 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 This afternoon went to bed around 2 PM mild cramps, woke up this evening had heavier bleeding and within the last hour prior to arrival spontaneously passed fetus with intact amniotic sac. She currently is without complaints of pain. Still having vaginal bleeding. Reported that she thought she was about 18 weeks along. Visua lization of the fetus at the bedside and the sac looks more like she might be about 12- 14 weeks along. No recent illnesses such as fevers, chills, cough or congestion. No burning with urination. All other review of systems reviewed and negative except as stated. Timing/Duration: just prior to arrival Severity/Quality: cramping (None currently) Radiation: suprapubic Activities at Onset: none Prior Genitourinary Problems: similar symptoms Allergies and Home Medications Allergies Coded Allergies: No Known Drug Allergies (Verified Allergy, Unknown, 02/15/08) Patient Home Medication List Home Medication List Reviewed: Yes Amlodipine Besylate (Amlodipine Besylate) 10 Mg Tablet, 10 MG PO DAILY Prescribed by: NACHO OLIVIA on 07/23/16 0913 Hydrochlorothiazide (Hydrochlorothiazide) 25 Mg Tablet, 25 MG PO DAILY Prescribed by: NACHO OLIVIA on 07/24/16 0929 Vit W-Ca,Fe,FA(<1 mg) ( Vitamins) 1 Each Tablet, 1 EACH PO NEEDED, (Reported) Entered as Reported by: PATRIZIA OZUNA on 07/19/16 0653 Review of Systems Review of Systems Constitutional: see HPI EENTM: no symptoms reported Respiratory: no symptoms reported Cardiovascular: no symptoms reported Gastrointestinal: no symptoms reported Genitourinary: other (Vaginal bleed) Musculoskeletal: no symptoms reported Skin: no symptoms reported All Other Systemes Reviewed Negative Unless Noted: Yes Past Houldnz-Kzskrg-Mmdwap Hx Immunizations Up To Date Tetanus Booster (TDap): Less than 5yrs Past Medical History Adverse Reaction/Blood Tranf: No Family Medical History Diabetes mellitus 19 MOTHER Physical Exam Vital Signs Vital Signs - First Documented 10/26/21 22:00 Temp 36.3 Pulse 84 Resp 20 B/P (MAP) 163/100 (121) Pulse Ox 98 O2 Delivery Room Air Capillary Refill : Height, Weight, BMI Height: 5'3.00" Weight: 319lbs. 0.0oz. 144.792950pf; 56.5 BMI Method: General Appearance: WD/WN, no apparent distress Neck: normal inspection Cardiovascular: regular rate, rhythm Respiratory: lungs clear, normal breath sounds, no respiratory distress, no accessory muscle use Gastrointestinal: non tender, soft Pelvic: normal external exam, vaginal bleeding (Significant clots in the vaginal vault, unable to palpate cervix) Extremities: normal range of motion, normal inspection Neurologic/Psychiatric: alert, normal mood/affect, oriented x 3 Skin: normal color, warm/dry Progress/Results/Core Measures Suspected Sepsis SIRS Temperature: Pulse: Respiratory Rate: Laboratory Tests 10/26/21 22:05: White Blood Count 6.7 Blood Pressure / Mean: Laboratory Tests 10/26/21 22:05: Platelet Count 142 Results/Orders Lab Results Laboratory Tests Test 10/26/21 22:05 Range/Units White Blood Count 6.7 4.3-11.0 10^3/uL Red Blood Count 3.40 L 3.80-5.11 10^6/uL Hemoglobin 11.2 L 11.5-16.0 g/dL Hematocrit 34 L 35-52 % Mean Corpuscular Volume 99 80-99 fL Mean Corpuscular Hemoglobin 33 25-34 pg Mean Corpuscular Hemoglobin Concent 33 32-36 g/dL Red Cell Distribution Width 15.4 H 10.0-14.5 % Platelet Count 142 130-400 10^3/uL Mean Platelet Volume 12.2 9.0-12.2 fL Immature Granulocyte % (Auto) 0 % Neutrophils (%) (Auto) 68 42-75 % Lymphocytes (%) (Auto) 20 12-44 % Monocytes (%) (Auto) 8 0-12 % Eosinophils (%) (Auto) 3 0-10 % Basophils (%) (Auto) 1 0-10 % Neutrophils # (Auto) 4.6 1.8-7.8 10^3/uL Lymphocytes # (Auto) 1.3 1.0-4.0 10^3/uL Monocytes # (Auto) 0.6 0.0-1.0 10^3/uL Eosinophils # (Auto) 0.2 0.0-0.3 10^3/uL Basophils # (Auto) 0.0 0.0-0.1 10^3/uL Immature Granulocyte # (Auto) 0.0 0.0-0.1 10^3/uL My Orders Orders - GABI VELA MD Ed Iv/Invasive Line Start (10/26/21 22:05) Cbc With Automated Diff (10/26/21 22:05) Basic Metabolic Panel (10/26/21 22:05) Vital Signs/I&O 10/26/21 22:00 Temp 36.3 Pulse 84 Resp 20 B/P (MAP) 163/100 (121) Pulse Ox 98 O2 Delivery Room Air Capillary Refill : Progress Note : Time: 22:26 Progress Note Discussed with Dr. Waddell; except [facility] services observation overnight. IV to run lactated Ringer's at 80 cc an hour. Repeat CBC in the morning as well as an ultrasound in the morning. Orders for ibuprofen and Zofran have been written. Attempted pelvic exam patient's vaginal vault is filled with lots of clots. I was unable to get to the cervix. Departure Communication (Admissions) Time/Spoke to Admitting Phy: 22:[address] Waddell Impression Primary Impression: Miscarriage at 8 to 28 weeks gestation Disposition: ADMITTED INPATIENT Condition: Stable Admissions Decision to Admit Reason: Admit from ER (General) Decision to Admit/Date: Oct 26, 2021 Time/Decision to Admit Time: 22:26 Departure-Patient Inst. Referrals: PHILOMENA CALABRESE MD (PCP/Family) Primary Care Physician GABI VELA MD Oct 26, 2021 22:08
[2021-10-26 22:13] LABS: BASOPHILS % (AUTO) 1 % (0-10); EOSINOPHILS # (AUTO) 0.2 10^3/uL (0.0-0.3); EOSINOPHILS % (AUTO) 3 % (0-10); HEMATOCRIT 34 % (35-52); HEMOGLOBIN 11.2 g/dL (11.5-16.0); LYMPHOCYTES # (AUTO) 1.3 10^3/uL (1.0-4.0); LYMPHOCYTES % (AUTO) 20 % (12-44); MEAN CORPUSCULAR HEMOGLOBIN 33 pg (25-34); MEAN CORPUSCULAR HGB CONC 33 g/dL (32-36); MEAN CORPUSCULAR VOLUME 99 fL (80-99); MEAN PLATELET VOLUME 12.2 fL (9.0-12.2); MONOCYTES # (AUTO) 0.6 10^3/uL (0.0-1.0); MONOCYTES % (AUTO) 8 % (0-12); NEUTROPHILS # (AUTO) 4.6 10^3/uL (1.8-7.8); NEUTROPHILS % (AUTO) 68 % (42-75); PLATELET COUNT 142 10^3/uL (130-400); WHITE BLOOD COUNT 6.7 10^3/uL (4.3-11.0)
[2021-10-26] MEDS ORDERED: IBUPROFEN 600 MG (MOTRIN) TAB PO ONE (22:30)
[2021-10-26] MEDS ORDERED: ONDANSETRON 4 MG/2 ML (SDV) Z0FRAN IVP ONE (22:30)
[2021-10-26 22:31] LABS: CALCIUM 8.8 MG/DL (8.5-10.1); CREATININE SERUM 0.78 MG/DL (0.60-1.30); POTASSIUM 3.9 MMOL/L (3.6-5.0)
[2021-10-26] MEDS ORDERED: LACTATED RINGERS 1,000 ML IV ONE (23:16)
[2021-10-27] MEDS ORDERED: LACTATED RINGERS 1,000 ML IV SCH (00:45)
[2021-10-27] MEDS ORDERED: IBUPROFEN 600 MG (MOTRIN) TAB PO PRN (00:45)
[2021-10-27] MEDS ORDERED: ONDANSETRON 4 MG/2 ML (SDV) Z0FRAN IVP PRN (00:45)
[2021-10-27 01:00] VITALS: BP 102/51
[2021-10-27] MEDS ORDERED: LEVO300T5 PO (02:25)
[2021-10-27] MEDS ORDERED: NIFE-25 PO (02:25)
[2021-10-27 03:44] VITALS: BP 163/100
[2021-10-27] MEDS ORDERED: RT-ALBUTEROL SULF 2.5 MG/3 ML PRE-MIX VIAL INH PRN (04:00)
[2021-10-27 06:00] VITALS: BP 118/60
[2021-10-27 06:09] LABS: BASOPHILS % (AUTO) 0 % (0-10); EOSINOPHILS # (AUTO) 0.1 10^3/uL (0.0-0.3); EOSINOPHILS % (AUTO) 1 % (0-10); HEMATOCRIT 28 % (35-52); HEMOGLOBIN 9.3 g/dL (11.5-16.0); LYMPHOCYTES # (AUTO) 1.3 10^3/uL (1.0-4.0); LYMPHOCYTES % (AUTO) 16 % (12-44); MEAN CORPUSCULAR HEMOGLOBIN 33 pg (25-34); MEAN CORPUSCULAR HGB CONC 33 g/dL (32-36); MEAN CORPUSCULAR VOLUME 100 fL (80-99); MEAN PLATELET VOLUME 12.1 fL (9.0-12.2); MONOCYTES # (AUTO) 0.6 10^3/uL (0.0-1.0); MONOCYTES % (AUTO) 7 % (0-12); NEUTROPHILS % (AUTO) 75 % (42-75); PLATELET COUNT 127 10^3/uL (130-400)
--- NOTE | 2021-10-27 07:11 | History & Physical ---
HPI History of Present Illness: Gisselle is a 36-year-old 5, P3, now 82 who presents to emergency department via ambulance during the evening of October 26, 2021. She began having vaginal spotting the night before. She is currently in and per her reports approximately 18 weeks along. During the afternoon of October 26 she woke up having heavier vaginal bleeding and just prior to arrival at the ED past intact amniotic sac with fetus within. Up until this point she had noted no significant problems with her . Source: patient Exam Limitations: no limitations Date seen by provider: Oct 27, 2021 Time Seen by Provider: 06:35 Attending Physician Mane Jacinto MD PCP Thuy Cha MD Consult Date of Admission Oct 26, 2021 at 22:24 Home Medications Home Medications Reviewed patient Home Medication Reconciliation performed by pharmacy medication reconciliations residential appliance repair technician and/or nursing. Patients Allergies have been reviewed. Allergies Coded Allergies: No Known Drug Allergies (Verified , 02/15/08) ZFC-Fmgliw-Qritbl Hx Patient Social History Marrital Status: Employed/Student: employed ([employer]) Smoking Status: Current Everyday Smoker Alcohol Use?: No Tobacco type used: Cigarettes Have you traveled recently?: No Immunizations Up To Date Tetanus Booster (TDap): Less than 5yrs First/Initial COVID19 Vaccinat: Unvaccinated Second COVID19 Vaccination Timoteo: Unvaccinated Third COVID19 Vaccination Date: Unvaccinated Past Medical History Sleep apnea hx of Gestational DM Family Medical History Family History: Diabetes mellitus 19 MOTHER Review of Systems ([facility]) Constitutional: see HPI Reviewed Test Results Reviewed Test Results Lab Laboratory Tests Test 10/26/21 22:05 10/27/21 06:02 Range/Units White Blood Count 6.7 8.0 4.3-11.0 10^3/uL Red Blood Count 3.40 L 2.80 L 3.80-5.11 10^6/uL Hemoglobin 11.2 L 9.3 L 11.5-16.0 g/dL Hematocrit 34 L 28 L 35-52 % Mean Corpuscular Volume 99 100 H 80-99 fL Mean Corpuscular Hemoglobin 33 33 25-34 pg Mean Corpuscular Hemoglobin Concent 33 33 32-36 g/dL Red Cell Distribution Width 15.4 H 15.5 H 10.0-14.5 % Platelet Count 142 127 L 130-400 10^3/uL Mean Platelet Volume 12.2 12.1 9.0-12.2 fL Immature Granulocyte % (Auto) 0 0 % Neutrophils (%) (Auto) 68 75 42-75 % Lymphocytes (%) (Auto) 20 16 12-44 % Monocytes (%) (Auto) 8 7 0-12 % Eosinophils (%) (Auto) 3 1 0-10 % Basophils (%) (Auto) 1 0 0-10 % Neutrophils # (Auto) 4.6 6.0 1.8-7.8 10^3/uL Lymphocytes # (Auto) 1.3 1.3 1.0-4.0 10^3/uL Monocytes # (Auto) 0.6 0.6 0.0-1.0 10^3/uL Eosinophils # (Auto) 0.2 0.1 0.0-0.3 10^3/uL Basophils # (Auto) 0.0 0.0 0.0-0.1 10^3/uL Immature Granulocyte # (Auto) 0.0 0.0 0.0-0.1 10^3/uL Sodium Level 140 135-145 MMOL/L Potassium Level 3.9 3.6-5.0 MMOL/L Chloride Level 109 H 98-107 MMOL/L Carbon Dioxide Level 18 L 21-32 MMOL/L Anion Gap 13 5-14 MMOL/L Blood Urea Nitrogen 12 7-18 MG/DL Creatinine 0.78 0.60-1.30 MG/DL Estimat Glomerular Filtration Rate 101 BUN/Creatinine Ratio 15 Glucose Level 146 H 70-105 MG/DL Calcium Level 8.8 8.5-10.1 MG/DL Physical Exam-([facility]) Physical Exam Vital Signs VS - Last 72 Hours, by Label 10/26/21 10/27/21 10/27/21 10/27/21 22:00 00:30 01:00 03:44 Temp 36.3 36.4 36.3 Pulse 84 79 84 Resp 20 20 B/P (MAP) 163/100 (121) 102/51 (68) Pulse Ox 98 96 96 98 O2 Delivery Room Air Room Air Room Air 10/27/21 10/27/21 10/27/21 06:00 07:50 08:30 Temp 36.7 37.2 Pulse 84 84 Resp 20 20 B/P (MAP) 118/60 (79) 111/55 (73) Pulse Ox 96 94 O2 Delivery Room Air Room Air Room Air Capillary Refill : Less Than 3 Seconds General Appearance: no apparent distress (in the morning of October 27, 2021) Eyes: Bilateral Eye Normal Inspection Respiratory: lungs clear Cardiovascular: regular rate, rhythm Back: no CVA tenderness Neurologic/Psychiatric: oriented x 3 Skin: normal color Comments pelvic exam was performed by physician in the emergency department during the late evening of October 26. Blood clots were noted within the vaginal vault Assessment/Plan Assessment/Plan Admission Dx 1. Completed miscarriage in early second trimester 2. Vaginal bleeding on observation admission Admission Status: Observation Reason for Inpatient Admission: she will have ultrasound in the morning to ensure completed miscarriage without any debris. Also IV fluids will be ran at 80 cc/hour overnight. Her bleeding will be monitored by nurses on living services. Will recheck CBC in the morning of October 27 MANE JACINTO MD Oct 27, 2021 07:11
[2021-10-27 07:50] VITALS: BP 111/55
--- NOTE | 2021-10-27 08:58 | Diagnostic Imaging Report ---
PROCEDURE: Pelvic comp/transvaginal sonogram. TECHNIQUE: Complete transabdominal and transvaginal pelvic ultrasound was performed. In addition, limited pelvic Doppler was performed. INDICATION: Miscarriage. FINDINGS: Uterus is enlarged measuring 12.3 x 7.7 x 9.4 cm. The endometrium is markedly thickened measuring up to 5.3 cm. There is significant endometrial heterogeneity. The endometrium is poorly defined with poorly defined interface between the endometrium and adjacent myometrium. There is some questionable marked vascularity along the anterior aspect of the endometrium and the possibility of retained products of conception cannot be excluded. No myometrial mass is identified. Ovaries cannot be visualized. There is no adnexal mass or free fluid detected. IMPRESSION: Significantly thickened and heterogeneous endometrium with poorly defined interface. There is some questionable minimal vascularity present in which retained products of conception cannot be entirely excluded. Dictated by: Dictated on workstation # [id number]
--- NOTE | 2021-10-27 09:26 | Discharge Inst-Women's Service ---
Discharge Inst-Women's Serv Depart Medication/Instructions Instructions May have ibuprofen 200mg and take 2 or 3 if pelvic cramps. Problems Reviewed?: Yes Consults/Follow Up Additional Follow Up: Yes (Dr Galaviz within the week) Activity Driving Instructions: No Driving for 1 Week Nothing Inside Vagina: No [place] (for 4 weeks.) Diet Discharge Diet: Regular Diet Return to The Hospital For: as below Symptoms to Report to : Bleeding Excessive, Pain Increased, Fever Over 101 Degrees F, Vaginal Discharge Foul For Any Problems or Questions: Contact Your Physician YIMI JACINTO MD Oct 27, 2021 09:26
--- NOTE | 2021-10-30 15:06 | Physician Query-Final Dx ---
Final Diagnosis Give Final Diagnosis Please give Final Diagnosis ELVISJulOct 30, 2021 15:06
== END 2021-10-27 10:00 | disposition home or self-care (01) ==
LOC: EDUNIT# 21:59 → ER 22:01 → WS 22:24
PROVIDERS: ADMIT Family Medicine; ATTEND Family Medicine
DX: O03.9 Complete or unspecified spontaneous abortion without complication (principal); N93.9 Abnormal uterine and vaginal bleeding, unspecified; F17.210 Nicotine dependence, cigarettes, uncomplicated
CPT/HCPCS: 76830; 76856; 80048; 85025 ×2; 86850; 86900; 86901; 96361; 99284; G0378; G0379; 36415